=== PATIENT | male | born 1950 | race Caucasian/White ===

== ENCOUNTER 2017-12-07 22:47 | Emergency (ER) | payer MEDICARE, BC ==
[~2017-12-07] VITALS: Ht 177.8 cm; Wt 87.4 kg
[2017-12-07 22:56] VITALS: BP 174/83; PULSE 86; RESP 18; TEMP 97.8; O2SAT 98
[2017-12-07] MEDS ORDERED: LEVO125T4 PO (23:13)
[2017-12-07] MEDS ORDERED: LISI10TA3 PO (23:13)
[2017-12-07] MEDS ORDERED: ZITHTAB PO (23:22)
--- NOTE | 2017-12-07 23:24 | PD ---
HPI Chief Complaint: ENT Complaint Time Seen by Provider: 23:17 Travel History International Travel<30 days: No Contact w/Intl Traveler<30days: No Traveled to known affect area: No History of Present Illness HPI The patient is a 67-year-old male that complains of hoarseness since around 10/11 this evening. He denies any sore throat. He does have a cough. The patient's says shows gets a Z-Bertram for this and is encouraging him to get a prescription for a Z-Bertram. 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 He denies any fever. He denies any nausea, vomiting or diarrhea. He comes from [place] and has no local primary care physician. [facility] Social History Tobacco Use: No Allergies-Medications (Allergen,Severity, Reaction): Coded Allergies: Penicillins (Verified Allergy, Severe, Shortness of Breath, 12/07/17) RASH AND HIVES Reported Meds & Prescriptions Reported Meds & Active Scripts Active Reported Lisinopril 10 Mg Tab 10 Mg PO DAILY Levothyroxine (Levothyroxine Sodium) 125 Mcg Tab 125 Mcg PO DAILY Review of Systems Except as stated in HPI: all other systems reviewed are Neg Physical Exam Narrative GENERAL: Well-nourished, well-developed patient in no respiratory distress. The blood pressure is 1 7483 but the rest the vital signs are normal. He did not cough once during the entire exam. His voice is slightly hoarse. SKIN: Focused skin assessment warm/dry. HEAD: Normocephalic. EYES: No scleral icterus. No injection or drainage. NECK: Supple, trachea midline. No JVD or lymphadenopathy. CARDIOVASCULAR: Regular rate and rhythm without murmurs, gallops, or rubs. RESPIRATORY: Breath sounds equal bilaterally. No accessory muscle use. Lungs clear to auscultation bilaterally. GASTROINTESTINAL: Abdomen soft, non-tender, nondistended. MUSCULOSKELETAL: No cyanosis, or edema. BACK: Nontender without obvious deformity. No CVA tenderness. ENT: The throat is clear without erythema, exudate nor abscess. The tympanic membranes are clear. Data Data Last Documented VS Vital Signs Date Time Temp Pulse Resp B/P (MAP) Pulse Ox O2 Delivery O2 Flow Rate FiO2 12/07/17 22:56 97.8 86 18 174/83 (113) 98 [facility] Medical Decision Making Medical Screen Exam Complete: Yes Emergency Medical Condition: Yes Medical Record Reviewed: Yes Differential Diagnosis Viral laryngitis, viral upper respiratory infection, Narrative Course The patient likely has viral laryngitis. He will be given a Z-Bertram because the insist that he be given a Z-Bertram. He needs to increase his liquid intake. He should follow-up with a primary care physician next week if not better. Diagnosis Primary Impression: Laryngitis Additional Instructions: Z-Bertram as 2 tablets on day one and then one tablet days 2 through 5. Follow-up next week with a primary care physician if not better. Drink plenty of liquids. Med/Other Pt SpecificInfo: Prescription(s) given Scripts Azithromycin (Zithromax Z-Bertram) 250 Mg Dspk 250 MG PO DIRECTED for Infection, #1 DSPK 0 Refills 500 MG (2 tabs) day 1, then 1 tab days 2-5. Prov: Jerod Chen MD 12/07/17 Disposition: 01 DISCHARGE HOME Condition: Stable Jerod Chen MD Dec 07, 2017 23:24
[2017-12-07 23:44] VITALS: BP 159/98
== END 2017-12-07 23:45 | disposition home or self-care (01) ==
LOC: PHED 22:47
DX: J04.0 Acute laryngitis (principal)
CPT/HCPCS: 99283